=== PATIENT | female | born 1980 | race Caucasian/White ===

== ENCOUNTER 2017-01-11 17:06 | Emergency (ER) | payer SELFPAY ==
[2017-01-11 17:20] VITALS: BP 127/88
[2017-01-11] MEDS ORDERED: AMOXICILLIN TR/POT CLAVULANATE 500-125 MG TAB PO ONE (18:35)
[2017-01-11] MEDS ORDERED: DIPH/PERTUSS(ACELL)/TETANUS VAC/PF 0.5 ML SYR (>=10YO) IM ONE (18:35)
--- NOTE | 2017-01-11 18:38 | ER Document Report ---
ED Animal Bite - General Chief Complaint: Dog Bite Stated Complaint: DOG BITE Time Seen by Provider: 01/11/17 18:25 Mode of Arrival: Ambulatory Information source: Patient Notes: 36-year-old female presents to ED for complaint of dog bite to the right arm. The dog had all that shot but she has not had her tetanus shot. TRAVEL OUTSIDE OF THE [place] IN LAST 30 DAYS: No - HPI Location of injury: Other - Right forearm Severity of injury: Bitten Onset: Just prior to arrival Quality of pain: Sharp Pain Level: 3 Severity: Moderate Context of attack: "Unprovoked" attack Type of animal: Dog Appearance of animal: Appeared well Animal's immunizations: UTD Animal captured or known: Yes Animal control notified: Yes Animal control form completed: Yes - Related Data Allergies/Adverse Reactions: No Known Allergies Allergy (Verified 01/11/17 17:17) Past Medical History - General Information source: POA - Power of Christian Counselor - Social History Smoking Status: Current Every Day Smoker Cigarette use (# per day): Yes - Pack per day Chew tobacco use (# tins/day): No Smoking Education Provided: Yes - less than 2 minutes Frequency of alcohol use: Heavy - 2-4 beer a day Drug Abuse: None Occupation: Administration Lives with: Family Family History: DM, Hypertension, Malignancy. denies: Arthritis, CAD, COPD, CVA , Hyperlipidemia, Thyroid Disfunction Patient has suicidal ideation: No Patient has homicidal ideation: No - Past Medical History Cardiac Medical History: Reports: None Pulmonary Medical History: Reports: Hx Bronchitis EENT Medical History: Reports: None Neurological Medical History: Reports: None Endocrine Medical History: Reports: Other - Gestational diabetes Renal/ Medical History: Reports: None Malignancy Medical History: Reports: None GI Medical History: Reports: None Musculoskeltal Medical History: Reports Hx Musculoskeletal Trauma Skin Medical History: Reports None Psychiatric Medical History: Reports: None Traumatic Medical History: Reports: Hx Fractures - left 5th finger Infectious Medical History: Reports: None Past Surgical History: Reports: Hx Myringotomy, Hx Oral Surgery - wisdom teeth, Hx Tubal Ligation - Immunizations Immunizations up to date: Yes Hx Diphtheria, Pertussis, Tetanus Vaccination: No - refused Review of Systems - Review of Systems Constitutional: No symptoms reported EENT: No symptoms reported Cardiovascular: No symptoms reported Respiratory: No symptoms reported Gastrointestinal: No symptoms reported Genitourinary: No symptoms reported Female Genitourinary: No symptoms reported Musculoskeletal: Other - complains of pain to right forearm Skin: Other - dog bite small laceration wound to right forearm Hematologic/Lymphatic: No symptoms reported Neurological/Psychological: No symptoms reported -: Yes All other systems reviewed and negative Physical Exam - Vital signs Vitals: Temp Pulse Resp BP Pulse Ox 98.6 F 114 H 16 127/88 H 98 01/11/17 17:17 01/11/17 17:17 01/11/17 17:17 01/11/17 17:17 01/11/17 17:17 Interpretation: Normal - General General appearance: Appears well, Alert - HEENT Head: Normocephalic, Atraumatic Eyes: Normal Pupils: PERRL - Respiratory Respiratory status: No respiratory distress Chest status: Nontender Breath sounds: Normal Chest palpation: Normal - Cardiovascular Rhythm: Regular Heart sounds: Normal auscultation Murmur: No - Abdominal Inspection: Normal Distension: No distension Bowel sounds: Normal Tenderness: Nontender Organomegaly: No organomegaly - Back Back: Normal, Nontender - Extremities General upper extremity: Normal inspection, Nontender, Normal color, Normal ROM , Normal temperature General lower extremity: Normal inspection, Nontender, Normal color, Normal ROM , Normal temperature, Normal weight bearing. No: Jaison's sign - Neurological Neuro grossly intact: Yes Cognition: Normal Orientation: AAOx4 [place] Coma Scale Eye Opening: Spontaneous [place] Coma Scale Verbal: Oriented [place] Coma Scale Motor: Obeys Commands [place] Coma Scale Total: 15 Speech: Normal Motor strength normal: LUE, RUE, LLE, RLE Sensory: Normal - Psychological Associated symptoms: Normal affect, Normal mood - Skin Skin Temperature: Warm Skin Moisture: Dry Skin Color: Normal Skin irregularity: Laceration - laceration 1/2 cm Irregularity with: Tenderness. negative: Swelling Course - Re-evaluation Re-evalutation: 01/11/17 20:25 Cleaned relation well with soap and water, bacitracin and Band-Aid applied. Discussed with patient the need for Augmentin and a tetanus shot as she could not remember when her last tetanus shot was. Patient agreed to the tetanus and Augmentin. She related that it with the Augmentin was too expensive when I told a bit below had it for $15 for her prescription for 10 days. She was adamant she needed to leave right now. The patient walked over to fax the animal bite paper to the animal control. She was waiting to give the Augmentin and tetanus immunization until I had called reload to find that the shane of the Augmentin. While she was gone the patient became more adamant that she needed to leave right now and that she was not going to take the Augmentin as it was too expensive and she did not want the Augmentin that I would given her at this time because she was not going to fill the prescription. I told the nurse that she was ready to go home and that she the patient stated she was going to leave in the next few minutes. Patient got up from the bed while the nurse was walking towards the room less than that was unprofessional for me to tell the nurse that she was leaving and stormed out without getting her tetanus shot. I had already gone over all the discharge instructions and encouraged her to take the tetanus shot and the Augmentin. She got angry and left. - Vital Signs Vital signs: Temp Pulse Resp BP Pulse Ox 98.6 F 114 H 16 127/88 H 98 01/11/17 17:17 01/11/17 17:17 01/11/17 17:17 01/11/17 17:17 01/11/17 17:17 Discharge - Discharge Clinical Impression: Dog bite of arm Qualifiers: Encounter type: initial encounter Laterality: right Qualified Code(s): S41.151A - Open bite of right upper arm, initial encounter Disposition: HOME, SELF-CARE Instructions: Family Physicians / Practices Additional Instructions: Animal Bites Animal bites are often heavily contaminated with bacteria. In spite of thorough cleansing and proper treatment, these wounds frequently become infected. Bite wounds of the hands are especially prone to complications. Bites are dressed, if possible. Large wounds may require suturing after internal cleansing. Because of infection risk, some large wounds must remain unstitched. Your doctor is trained to advise you on the best treatment for your bite. Call the doctor at once if the wound becomes red, swollen, warm, increasingly painful, or if it begins to drain. Danger signs also include red streaks up the involved extremity, swollen glands in the groin or under the arm , or fever and chills. The risk of rabies from domestic animals is very low. Bats, sick animals, and wild animals may expose you to rabies. The physician, or the health department, will inform you if you will need to receive the rabies vaccine. Augmentin Augmentin is a mixture of amoxicillin and clavulanate. Amoxicillin is a member of the penicillin family. It covers the germs likely to cause ear, bronchial, and urinary infections better than plain penicillin. The addition of clavulanate allows it to cover staph infections of the skin, as well as resistant cases of ear and sinus infections. Your physician has chosen Augmentin for you because of the special nature of your situation. Augmentin is best taken with meals. Nausea after taking the medication is rare, but can occur. Diarrhea can occur, particularly in small children. Vaginal yeast infections, and oral thrush in infants are also common. Contact your physician if these problems occur. Allergy to penicillins is common. If you have had an allergic reaction to any drug of the penicillin family, you should never take any other penicillin. Notify your doctor at once if you develop hives, shortness of breath, swelling, or faintness. SOAP CLEANSING: Gently wash the wound daily using a mild soap (like Ivory, Phisoderm, Neutrogena). Use warm water, rubbing gently until all debris, ooze, and crusting have been washed from the wound. Allow to dry briefly (about 10 minutes) after cleaning. Repeat this cleansing at least three times a day for the first two days and then once or twice a day. ANTIBIOTIC OINTMENT PROTECTION: Your wounds are such that dressing them is not practical or optional. After cleansing, you should apply a thin coating of antibiotic ointment ( Bacitracin, not Neosporin) to the wounds at least three times daily. This lessens infection risk, and may decrease the amount of scarring. Use a q-tip or dull butter knife, not your finger, to apply this ointment. Any debris or ooze which builds up in the ointment should be gently rubbed off with a sterile gauze pad. Harder crusting may need to be gently scrubbed off with a clean wash cloth with soap and warm water, perhaps applying a warm, wet wash cloth to the wound for ten minutes first. Development of redness, severe itching, or blistering may mean allergy to the ointment. See the doctor. TETANUS IMMUNIZATION GIVEN: You have been given an immunization against tetanus. Please record this in your records. In general, a booster is needed only once every 10 years. The tetanus shot protects against tetanus or "lockjaw," which is a complication of certain wound infections (the tetanus shot cannot protect against the actual infection). The immunization site may become warm and red due to local reaction. If this occurs, apply warm compresses and take aspirin or ibuprofen to reduce inflammation and discomfort. Return for evaluation if the reaction becomes severe. FOLLOW-UP CARE: If you have been referred to a physician for follow-up care, call the physician s office for an appointment as you were instructed or within the next two days. If you experience worsening or a significant change in your symptoms, notify the physician immediately or return to the Emergency Department at any time for re-evaluation. Prescriptions: Amox Tr/Potassium Clavulanate [Augmentin 875-125 Tablet] 1 tab PO BID 10 Days Hydrocodone/Acetaminophen [[place] 5-325 mg Tablet] 1 tab PO BIDP PRN #7 tablet PRN Reason: Forms: Elevated Blood Pressure, Smoking Cessation Education, Return to Work
== END 2017-01-11 19:12 | disposition home or self-care (01) ==
LOC: ER 17:06
DX: S41.151A Open bite of right upper arm, initial encounter (principal); W54.0XXA Bitten by dog, initial encounter; F17.210 Nicotine dependence, cigarettes, uncomplicated; Z98.51 Tubal ligation status
CPT/HCPCS: 90715; 99283

== ENCOUNTER 2019-05-17 13:18 | Emergency (ER) | payer SELFPAY ==
[2019-05-17 13:32] VITALS: BP 152/98
[2019-05-17] MEDS ORDERED: AMOXICILLIN TRIHYDRATE 500 MG CAPSULE PO ONE (14:39)
--- NOTE | 2019-05-17 14:42 | ER Document Report ---
HPI - HPI Time Seen by Provider: 05/17/19 14:30 Pain Level: 5 Notes: Patient is a 39-year-old female presenting to the emergency department with complaints of left ear pain. She reports this pain has been ongoing for several days. Denies any trauma to the ear. Denies any drainage from the ear. Denies any fevers. - CONSTITUTIONAL Constitutional: DENIES: Fever, Chills - EENT EENT: REPORTS: Ear Pain - left. DENIES: Sore Throat, Eye problems - NEURO Neurology: DENIES: Headache, Weakness, Vision blurred, Dizzinesss / Vertigo - CARDIOVASCULAR Cardiovascular: DENIES: Chest pain - RESPIRATORY Respiratory: DENIES: Trouble Breathing, Coughing - REPRODUCTIVE Reproductive: DENIES: : - MUSCULOSKELETAL Musculoskeletal: DENIES: Extremity pain Past Medical History - General Information source: Patient - Social History Smoking Status: Current Every Day Smoker Chew tobacco use (# tins/day): No Frequency of alcohol use: Occasional Drug Abuse: None Family History: DM, Hypertension, Malignancy. denies: Arthritis, CAD, COPD, CVA, Hyperlipidemia, Thyroid Disfunction Patient has suicidal ideation: No Patient has homicidal ideation: No Pulmonary Medical History: Reports: Hx Bronchitis Renal/ Medical History: Denies: Hx Peritoneal Dialysis Musculoskeletal Medical History: Reports Hx Musculoskeletal Trauma Traumatic Medical History: Reports: Hx Fractures - left 5th finger Past Surgical History: Reports: Hx Myringotomy, Hx Oral Surgery - wisdom teeth, Hx Tubal Ligation - Immunizations Immunizations up to date: Yes Hx Diphtheria, Pertussis, Tetanus Vaccination: No - refused Vertical Provider Document - CONSTITUTIONAL Notes: PHYSICAL EXAMINATION: GENERAL: Well-appearing, well-nourished and in no acute distress. HEAD: Atraumatic, normocephalic. EYES: Pupils equal round extraocular movements intact, conjunctiva are normal. ENT: Nares patent, right TM unremarkable, left TM bulging and erythematous. NECK: Normal range of motion LUNGS: No respiratory distress Musculoskeletal: Normal range of motion NEUROLOGICAL: Normal speech, normal gait. PSYCH: Normal mood, normal affect. SKIN: Warm, Dry, normal turgor, no rashes or lesions noted. - INFECTION CONTROL TRAVEL OUTSIDE OF THE [place] IN LAST 30 DAYS: No Course - Re-evaluation Re-evalutation: Well-appearing 39-year-old female presenting with ear pain. Examination is consistent with otitis media. Patient does not have any mastoid tenderness. She will be started on oral antibiotics. ED return precautions were discussed, patient verbalizes understanding and agreement with same. The patient's emergency department workup and current diagnosis were explained to the patient and or family. Follow-up instructions were provided. Medications if prescribed were discussed. Instructions for when to return to the emergency department including specific worrisome symptoms were discussed with the patient and/or family. - Vital Signs Vital signs: Temp Pulse Resp BP Pulse Ox 98.6 F 116 H 18 152/98 H 100 05/17/19 13:32 05/17/19 13:32 05/17/19 13:32 05/17/19 13:32 05/17/19 13:32 Discharge - Discharge Clinical Impression: Otitis media Qualifiers: Otitis media type: unspecified Chronicity: acute Qualified Code(s): H66.90 - Otitis media, unspecified, unspecified ear Condition: Stable Disposition: HOME, SELF-CARE Additional Instructions: You have been diagnosed as having an ear infection. Please take the amoxicillin 3 times daily for 10 days. Follow-up with your primary care physician as needed. Return if you become confused, have facial swelling, worsening pain despite antibiotics, or any other symptoms that are concerning to you. You should take 650 mg of Tylenol every 4 hours and 600 mg of ibuprofen every 6 hours as needed for discomfort. You may also want to try warm compress to your ear as this may help with the pain. Prescriptions: Amoxicillin 1 tab PO TID #30 tab Forms: Return to Work
== END 2019-05-17 14:49 | disposition home or self-care (01) ==
LOC: ER 13:18
DX: H66.90 Otitis media, unspecified, unspecified ear (principal); H92.02 Otalgia, left ear; F17.200 Nicotine dependence, unspecified, uncomplicated; Z98.51 Tubal ligation status
CPT/HCPCS: 99282

== ENCOUNTER 2019-05-18 01:34 | Emergency (ER) | payer SELFPAY ==
--- NOTE | 2019-05-18 04:24 | ER Document Report ---
ED ENT - General Chief Complaint: Ear Pain Stated Complaint: EAR PAIN TRAVEL OUTSIDE OF THE [place] IN LAST 30 DAYS: No - HPI Patient complains to provider of: Ear problem. No: Dental problem, Nose problem, Throat problem, Other Onset: Yesterday Onset/Duration: denies: Sudden, Gradual, Constant, Intermittent, Persistent, Waxing and waning, Better, Worse, Gone Quality of pain: Achy, Dull. denies: Sharp, Stabbing, Other Severity: Mild Pain Level: 1 Context: denies: Allergies, Injury, Recent Illness, Travel, Other Location of pain: Ears. No: Face, Jaw, Neck, Nose, Sinus, Throat, Tooth, Other Associated symptoms: denies: None, Barotrauma, Broken tooth, Chills, Congestion, Cough, Dental pain, Dental caries, Difficulty swallowing, Dizziness, Drooling, Ear pain, Ear drainage, Ear trauma, Face swelling, Fever, Foreign body, Hearing loss, Headache, Hoarse voice, Jaw pain, Jaw swelling, Motion sickness, Neck pain, Nose bleed, Runny nose, Sinus pain, Sinus drainage, Sore throat, Stiff neck, Swollen glands, Tinnitus, Vertigo, Other Recently seen / treated by doctor: Yes Notes: Patient was seen earlier yesterday and diagnosed left otitis media in part on amoxicillin claims that the pain is still there. Similar to when she has had an outer ear infection - Related Data Allergies/Adverse Reactions: No Known Allergies Allergy (Verified 01/11/17 17:17) Past Medical History - Social History Smoking Status: Current Every Day Smoker Family History: DM, Hypertension, Malignancy. denies: Arthritis, CAD, COPD, CVA, Hyperlipidemia, Thyroid Disfunction Patient has suicidal ideation: No Patient has homicidal ideation: No Pulmonary Medical History: Reports: Hx Bronchitis Renal/ Medical History: Denies: Hx Peritoneal Dialysis Musculoskeletal Medical History: Reports Hx Musculoskeletal Trauma Traumatic Medical History: Reports: Hx Fractures - left 5th finger Past Surgical History: Reports: Hx Myringotomy, Hx Oral Surgery - wisdom teeth, Hx Tubal Ligation - Immunizations Immunizations up to date: Yes Hx Diphtheria, Pertussis, Tetanus Vaccination: No - refused Review of Systems - Review of Systems Constitutional: denies: No symptoms reported, See HPI, Chills, Diaphoresis, Fever, Malaise, Weakness, Other, Weight gain, Weight loss, Recent illness EENT: Ear pain. denies: No symptoms reported, See HPI, Eye pain, Eye discharge, Blurred vision, Tearing, Double vision, Ear discharge, Nose pain, Nose congestion, Nose discharge, Sinus pressure, Sinus discharge, Throat pain, Difficulty swallowing, Throat swelling, Mouth pain, Mouth swelling, Dental problem, Vertigo, Other Cardiovascular: denies: No symptoms reported, See HPI, Chest pain, Palpitations, Heart racing, Orthopnea, Dyspnea, Syncope, Dizziness, Lightheaded, Edema, Other, Paroxysmal Nocturnal Dysp Respiratory: denies: No symptoms reported, See HPI, Cough, Hurts to breathe, Hemoptysis, Short of breath, Sputum, Stridor, Wheezing, Other Gastrointestinal: denies: No symptoms reported, See HPI, Abdomen distended, Abdominal pain, Diarrhea, Nausea, Vomiting, Constipation, Blood streaked bowels, Poor appetite, Poor fluid intake, Blood in vomit, Black stools, Rectal bleeding, Last bowel movement, Fecal incontinence, Other -: Yes All other systems reviewed and negative Physical Exam - Vital signs Vitals: Temp Pulse Resp BP Pulse Ox 97.9 F 108 H 18 144/85 H 100 05/18/19 01:37 05/18/19 01:37 05/18/19 01:37 05/18/19 01:37 05/18/19 01:37 Notes: PHYSICAL EXAMINATION: GENERAL: Well-appearing, well-nourished and in no acute distress. HEAD: Atraumatic, normocephalic. EYES: Pupils equal round and reactive to light, extraocular movements intact, sclera anicteric, conjunctiva are normal. ENT: nares patent, oropharynx clear without exudates. Moist mucous membranes. Left ear shows erythema and a drainage suggesting otitis externa I cannot view the TM on this side. Right ear is normal. NECK: Normal range of motion, supple without lymphadenopathy LUNGS: Breath sounds clear to auscultation bilaterally and equal. No wheezes rales or rhonchi. HEART: Regular rate and rhythm without murmurs ABDOMEN: Soft, nontender, normoactive bowel sounds. No guarding, no rebound. No masses appreciated. EXTREMITIES: Normal range of motion, no pitting or edema. No cyanosis. NEUROLOGICAL: No focal neurological deficits. Moves all extremities spontaneously and on command. PSYCH: Normal mood, normal affect. SKIN: Warm, Dry, normal turgor, no rashes or lesions noted. Course - Vital Signs Vital signs: Temp Pulse Resp BP Pulse Ox 97.9 F 108 H 18 144/85 H 100 05/18/19 01:37 05/18/19 01:37 05/18/19 01:37 05/18/19 01:37 05/18/19 01:37 Discharge - Discharge Clinical Impression: Otitis externa Qualifiers: Otitis externa type: unspecified type Chronicity: acute Laterality: left Qualified Code(s): H60.502 - Unspecified acute noninfective otitis externa, left ear Condition: Good Disposition: HOME, SELF-CARE Instructions: Otitis Externa ([facility]) Additional Instructions: Do not use Q-tips in your ear continue amoxicillin start the Corticosporin otic suspension drops Prescriptions: Neomy Sulf/Polymyx B Sulf/Hc [Cortisporin Ear Suspension] 10 ml OT Q6 #1 drops.susp
[2019-05-18 04:56] VITALS: BP 126/58
== END 2019-05-18 04:56 | disposition home or self-care (01) ==
LOC: ER 01:34
DX: H60.502 Unspecified acute noninfective otitis externa, left ear (principal); F17.200 Nicotine dependence, unspecified, uncomplicated
CPT/HCPCS: 99282